=== PATIENT | male | born 1975 | race Caucasian/White ===

== ENCOUNTER 2016-09-03 09:54 | Outpatient (CLI) | payer OTHER ==
[2016-09-03 13:36] LABS: CHOL/HDL RATIO 4.3 (<5.0); CHOLESTEROL 172 mg/dL; HDL CHOLESTEROL 40 mg/dL; LDL/HDL RATIO 2.4 (<3.6); TRIGLYCERIDES 176 mg/dL; VLDL CHOLESTEROL 35 mg/dL
== END 2016-09-03 09:55 | disposition home or self-care (01) ==
LOC: LAB.N 09:54
PROVIDERS: ATTEND Nurse Practitioner Gerontology
DX: E78.5 Hyperlipidemia, unspecified (principal); N52.9 Male erectile dysfunction, unspecified; R68.82 Decreased libido
CPT/HCPCS: 36415; 80061; 84403

== ENCOUNTER 2016-11-04 08:47 | Outpatient (CLI) | payer OTHER | END 2016-11-04 08:48 | disposition home or self-care (01) | LOC: LAB.N 08:47 | PROVIDERS: ATTEND Nurse Practitioner Gerontology | DX: E29.1 Testicular hypofunction (principal) | CPT/HCPCS: 36415; 82040; 84270; 84403 ==

== ENCOUNTER 2017-04-25 17:11 | Outpatient (CLI) | payer OTHER | END 2017-04-25 17:12 | disposition home or self-care (01) | LOC: LAB.N 17:11 | PROVIDERS: ATTEND Nurse Practitioner Gerontology | DX: E29.1 Testicular hypofunction (principal) | CPT/HCPCS: 36415; 84403 ==

== ENCOUNTER 2020-04-14 14:42 | Outpatient (CLI) | payer OTHER ==
[2020-04-14 23:43] VITALS: BP 124/73
--- NOTE | 2020-04-14 23:43 | SLEEP CARE CONSULTATION ---
Information from patient questionnaire entered by Wendie Palacios. I have reviewed and concur with the information entered by Wendie Palacios. This document represents the service I personally performed and the decisions made by me, Bruce Singh MD, [facility]. History of Present Illness Service Date and Time: 04/14/2020 1442 Reason for Visit: New patient, Re-formerly [facility] care Chief Complaint: reports: Unrefreshed sleep, Snoring, Observed pauses in breathing (Long pauses of breath with groaning loud noises), Fatigue Date of Onset: 12 years Usual bedtime: 10 PM Time it takes to fall asleep: 10 minutes Snores at night: Yes (but not all the time) Observed to quit breathing while asleep: Yes Sleeps alone due to snoring: No Number of times waking at night: 2 - 3 times Reasons for waking at night: reports: Pain (Sometimes wrist pain), Other (Holding my breath) Toss, Turn, or Twitch while sleeping: Yes Recalls having dreams: No Usually gets out of bed at: 530 AM Feels refreshed in the morning: No Morning headache: No Sleepy or fatigued during the day: Yes Ever fallen asleep while driving: No Takes day naps: No Dreams during day naps: No Prior sleep studies: Yes Year and Where: 2010 [facility] Additional HPI information: I had the pleasure of seeing Mr. Agarwal again after 10 years. Back then he complained of loud snore and witnessed apneas. His in-laboratory polysomnography was negative for significant sleep disordered breathing. The AHI was only 0.7. He tells me today that he now snores louder and his has observed him quit breathing more frequently. He wakes himself up from his own snore. During the day he feels tired and sleep. His [place] Sleepiness Scale score is 3. His weight has not changed much but he has developed hypertension. 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 Patient is and lives in [place]. Have you smoked in the past 12 months: Yes Cigarettes per day (20/pack): 20 Years of smokin Quit date: 05/2013 Smoking Pack Years: 15.0 Alcohol use: Yes Alcohol amount and frequency: 2 glasses wine/night Caffeine use: Yes Caffeine amount and frequency: 2 cups Family History Family history of sleep disordered breathing: No (Not sure) Allergies and Home Medications Drug allergies reviewed: Yes Home medication list reviewed: Yes Review of Systems Weight gain over past 5 years: 30 Weight loss over past 5 years: 40 Cardiovascular: reports: high blood pressure Respiratory: denies: shortness of breath, wheeze, sputum production, chronic cough, other Gastrointestinal: denies: heartburn, difficulty swallowing, nausea, vomitting, diarrhea, abdominal pain, other Urinary: reports: impotence Neurological: denies: headaches, seizure, head trauma, disorientation, speech dysfunction, gait or balance problems, fainting or unconsciousness, other Psychiatric: denies: Attention Deficit Hyperactivity, anxiety, depression, mood disorder, claustrophobia, other Ear/Nose/Throat: reports: nose bleeds, wisdom teeth removed Endocrine: reports: sluggishness (tired) Musculoskeletal: denies: joint pain, neck pain, back pain, joint swelling, muscle pain or cramping, mobility problems, other Immunologic: denies: sneezing, rash, itching, allergies to food or environment, other Physical Exam Vital signs obtained and entered by: Dr. Singh Blood Pressure: 124/73 Cuff size: regular Heart Rate: 83 O2 Saturation: 97 Height: 6 ft 3 in Weight: 250 lb Body Mass Index: 31.2 BMI Classification: Obese Neck circumference: 17.5 Mood/affect: normal HEENT: No craniofacial malformation Nostrils: patent to airflow Turbinates: normal Septum: midline Mouth and throat: narrow oropharynx Soft palate: long Hard palate: normal Uvula: normal Uvula visualization: 50% Mallampati Class II Tongue: normal in size Tonsils: small Chin and jaw: normal size and position Neck: normal w/o lymphadenopathy or thyromegaly Heart: regular rate and rhythm Lungs: clear bilaterally Neurologic: intact Impression and Plan IMPRESSION: 1. Obstructive Sleep Apnea-Hypopnea Syndrome, as suggested by history of loud and irregular snoring, observed cessation of breath while asleep, unrefreshed sleep, and daytime hypersomnolence. Narrow oropharynx and obesity are common predisposing factors for obstructive sleep apnea-hypopnea syndrome. Untreated obstructive sleep apnea can also cause hypertension. I recommend proceeding to polysomnography to confirm the diagnosis and to assess severity. If he has significant sleep disordered breathing, a manual CPAP titration study will also be performed to find the optimal treatment pressure. I informed the patient of what the sleep studies involve and after some discussion, he would like to first have a home sleep apnea test (HSAT). Plan: 1. Schedule a home sleep apnea test (HSAT). 2. Avoid long distance driving or when feeling sleepy. 3. Avoid alcohol, sedative and muscle relaxant around bedtime. 4. Attempt to lose weight. 5. Return for a follow up after the test. Follow up recommended for: Weight management Visit Type: In Office Time Spent with Patient (minutes): 15 Provider Statement: I spent 100% of the Face to Face Visit with the patient with greater than 50% spent counseling the patient and coordination of care.
== END 2020-04-14 14:43 | disposition home or self-care (01) ==
LOC: SC 14:42
PROVIDERS: ATTEND Internal Medicine Pulmonary Disease
DX: R06.83 Snoring (principal); R06.81 Apnea, not elsewhere classified; G47.8 Other sleep disorders; G47.10 Hypersomnia, unspecified; E66.9 Obesity, unspecified; Z68.31 Body mass index [BMI] 31.0-31.9, adult
CPT/HCPCS: 99202; 99212

== ENCOUNTER 2020-04-30 15:55 | Outpatient (CLI) | payer OTHER | END 2020-04-30 15:56 | disposition home or self-care (01) | LOC: SC 15:55 | PROVIDERS: ATTEND Internal Medicine Pulmonary Disease | DX: R06.83 Snoring (principal); E66.9 Obesity, unspecified; Z68.31 Body mass index [BMI] 31.0-31.9, adult | CPT/HCPCS: 95806 ==

== ENCOUNTER 2020-05-12 14:54 | Outpatient (CLI) | payer OTHER ==
--- NOTE | 2020-05-12 15:40 | SLEEP CARE CONSULTATION ---
Information from patient questionnaire entered by Wendie Palacios. I have reviewed and concur with the information entered by Wendie Palacios. This document represents the service I personally performed and the decisions made by me, Bruce Singh MD, [facility]. History of Present Illness Service Date and Time: 05/12/2020 1454 Initial [place] Sleepiness Scale score: 3 (in 2020 (9 in 2010) Current [place] Sleepiness Scale score: 6 Additional HPI information: HPI: Mr. Agarwal returned for follow up of the home sleep apnea test (HSAT) he had on 04/30/20. The test showed no significant sleep-disordered breathing with an AHI of 2.2 and adriana oxygen saturation of 85%. The patient slept almost equally in supine and non-supine positions. The patient was informed of these findings. I explained to him that the test was normal. The result is consistent with his in-laboratory polysomnography performed here 10 years ago. Sleep Study - Results Type of Sleep Study: Home sleep study Prior sleep studies: Yes Year and Where: 2010 [facility] Allergies and Home Medications Drug allergies reviewed: Yes Home medication list reviewed: Yes Review of Systems Review of systems same as previous: Yes Physical Exam Height: 6 ft 3 in Weight: 250 lb Body Mass Index: 31.2 BMI Classification: Obese Impression and Plan IMPRESSION: 1. Primary Snore (ICD-10 R06.83), but without significant sleep disordered breathing. The patient had the test because he saw him quit breathing at night. PLAN: 1. Avoid weight gain. 2. Return for a follow up on as needed basis. Follow up recommended for: Weight management Visit Type: In Office Time Spent with Patient (minutes): 15 Provider Statement: I spent 100% of the Face to Face Visit with the patient with greater than 50% spent counseling the patient and coordination of care.
== END 2020-05-12 14:55 | disposition home or self-care (01) ==
LOC: SC 14:54
PROVIDERS: ATTEND Internal Medicine Pulmonary Disease
DX: R06.83 Snoring (principal); E66.9 Obesity, unspecified; Z68.31 Body mass index [BMI] 31.0-31.9, adult
CPT/HCPCS: 99212